=== PATIENT | female | born 2000 | race Caucasian/White ===

== ENCOUNTER 2019-08-20 11:00 | Emergency (ER) | payer SELFPAY ==
[~2019-08-20] VITALS: Ht 162.5 cm; Wt 77.2 kg
--- NOTE | 2019-08-20 11:20 | ED Abdominal Pain ---
General Chief Complaint: CLEAT LAYER Stated Complaint: ABD PAIN Source of Information: Patient Exam Limitations: No Limitations History of Present Illness Date Seen by Provider: Aug 20, 2019 Time Seen by Provider: 11:12 Initial Comments 19-year-old female presents with right lower abdominal/pelvic pain. Patient reports that the pain has been on and off for a couple weeks. That she is approximately 11 weeks . However today it got significantly worse and that she "doubled over" she reports that she had a little bit of spotting but no bleeding. She denies any fever, chills, nausea or vomiting. She does not have any dysuria. No other systemic complaints Allergies and Home Medications Patient Home Medication List Home Medication List Reviewed: Yes Review of Systems Review of Systems Constitutional: No chills, No fever EENTM: No Symptoms Reported Respiratory: No Symptoms Reported Cardiovascular: No Symptoms Reported Gastrointestinal: See HPI Genitourinary: See HPI Musculoskeletal: no symptoms reported Skin: no symptoms reported Psychiatric/Neurological: No Symptoms Reported Past Koxxsyi-Ztxndr-Nzpwrr Hx Past Med/Social Hx: Reviewed Nursing Past Med/Soc Hx Patient Social History Recent Foreign Travel: No Physical Exam Vital Signs Vital Signs - First Documented 08/20/19 11:10 Temp 36.4 Pulse 92 Resp 18 B/P (MAP) 133/74 (93) Pulse Ox 100 O2 Delivery Room Air Capillary Refill : Height/Weight/BMI Height: '" Weight: lbs. oz. kg; BMI Method: General Appearance: WD/WN, no apparent distress Respiratory: chest non-tender, lungs clear, normal breath sounds Cardiovascular: normal peripheral pulses, regular rate, rhythm Gastrointestinal: non tender, soft; No distended, No guarding, No rebound Extremities: normal range of motion, non-tender Back: no CVA tenderness Progress/Results/Core Measures Results/Orders Lab Results Laboratory Tests Test 08/20/19 11:15 08/20/19 11:30 Range/Units Urine Color YELLOW Urine Clarity CLEAR Urine pH 7.5 5-9 Urine Specific [place] 1.010 L 1.016-1.022 Urine Protein NEGATIVE NEGATIVE Urine Glucose (UA) NEGATIVE NEGATIVE Urine Ketones NEGATIVE NEGATIVE Urine Nitrite NEGATIVE NEGATIVE Urine Bilirubin NEGATIVE NEGATIVE Urine Urobilinogen 0.2 < = 1.0 MG/DL Urine Leukocyte Esterase NEGATIVE NEGATIVE Urine RBC (Auto) NEGATIVE NEGATIVE Urine RBC NONE /HPF Urine WBC 0-2 /HPF Urine Squamous Epithelial Cells 0-2 /HPF Urine Crystals NONE /LPF Urine Bacteria TRACE /HPF Urine Casts NONE /LPF Urine Mucus NONE /LPF Urine Culture Indicated NO White Blood Count 6.0 4.3-11.0 10^3/uL Red Blood Count 5.00 4.35-5.85 10^6/uL Hemoglobin 14.2 11.5-16.0 G/DL Hematocrit 41 35-52 % Mean Corpuscular Volume 82 80-99 FL Mean Corpuscular Hemoglobin 28 25-34 PG Mean Corpuscular Hemoglobin Concent 35 32-36 G/DL Red Cell Distribution Width 12.5 10.0-14.5 % Platelet Count 355 130-400 10^3/uL Mean Platelet Volume 8.8 7.4-10.4 FL Neutrophils (%) (Auto) 70 42-75 % Lymphocytes (%) (Auto) 23 12-44 % Monocytes (%) (Auto) 6 0-12 % Eosinophils (%) (Auto) 0 0-10 % Basophils (%) (Auto) 0 0-10 % Neutrophils # (Auto) 4.2 1.8-7.8 X 10^3 Lymphocytes # (Auto) 1.4 1.0-4.0 X 10^3 Monocytes # (Auto) 0.4 0.0-1.0 X 10^3 Eosinophils # (Auto) 0.0 0.0-0.3 10^3/uL Basophils # (Auto) 0.0 0.0-0.1 10^3/uL Sodium Level 137 135-145 MMOL/L Potassium Level 3.5 L 3.6-5.0 MMOL/L Chloride Level 104 98-107 MMOL/L Carbon Dioxide Level 20 L 21-32 MMOL/L Anion Gap 13 5-14 MMOL/L Blood Urea Nitrogen 5 L 7-18 MG/DL Creatinine 0.43 L 0.60-1.30 MG/DL Estimat Glomerular Filtration Rate > 60 BUN/Creatinine Ratio 12 Glucose Level 84 70-105 MG/DL Calcium Level 9.6 8.5-10.1 MG/DL Corrected Calcium 8.5-10.1 MG/DL Total Bilirubin 0.3 0.1-1.0 MG/DL Aspartate Amino Transf (AST/SGOT) 9 5-34 U/L Alanine Aminotransferase (ALT/SGPT) 11 0-55 U/L Alkaline Phosphatase 71 40-136 U/L Total Protein 8.1 6.4-8.2 GM/DL Albumin 4.6 H 3.2-4.5 GM/DL My Orders Orders - MARTIN COATS DO Cbc With Automated Diff (08/20/19 11:14) Comprehensive Metabolic Panel (08/20/19 11:14) Hcg,Quantitative (08/20/19 11:14) Ua Culture If Indicated (08/20/19 11:14) Abo Rh Type (08/20/19 11:14) Us Appendix [id number] (08/20/19 11:14) Us Ob Single Fetus<14 [id number] (08/20/19 11:14) Vital Signs/I&O 08/20/19 11:10 Temp 36.4 Pulse 92 Resp 18 B/P (MAP) 133/74 (93) Pulse Ox 100 O2 Delivery Room Air Progress Progress Note : Progress Note Patient with no physical signs of abdominal pain or discomfort. Patient with ultrasound shows live intrauterine with normal ovaries no obvious inflammation in the area of the appendix. Normal labs. Discussed the patient is likely normal cramping. That she should follow-up with her primary care provider or OB is symptoms worsen or continue. She should return to the ER as needed. Departure Impression Primary Impression: Abdominal pain affecting Disposition: 01 HOME, SELF-CARE Condition: Stable Departure-Patient Inst. Referrals: NO,LOCAL PHYSICIAN (PCP/Family) Primary Care Physician Patient Instructions: Stomach Pain in Early MARTIN COATS DO Aug 20, 2019 11:20 POS
--- NOTE | 2019-08-20 11:30 | NUR ---
Notified xray to contact waste transportation technician for ordered ultrasound.
[2019-08-20 11:31] LABS: CLARITY,URINE CLEAR; COLOR,URINE YELLOW; PH,URINE 7.5 (5-9)
[2019-08-20 11:32] LABS: BACTERIA,URINE TRACE /HPF; BILIRUBIN,URINE NEGATIVE (NEGATIVE); GLUCOSE, URINE (UA) NEGATIVE (NEGATIVE); KETONES,URINE NEGATIVE (NEGATIVE); LEUKOCYTE ESTERASE ,URINE NEGATIVE (NEGATIVE); NITRITE,URINE NEGATIVE (NEGATIVE); PROTEIN,URINE NEGATIVE (NEGATIVE); SQUAMOUS EPITHELIAL CELL,UR 0-2 /HPF; WBC,URINE 0-2 /HPF
[2019-08-20 11:44] LABS: HEMOGLOBIN 14.2 G/DL (11.5-16.0); MEAN CORPUSCULAR HEMOGLOBIN 28 PG (25-34)
[2019-08-20 11:45] LABS: BASOPHILS % (AUTO) 0 % (0-10); EOSINOPHILS % (AUTO) 0 % (0-10); HEMATOCRIT 41 % (35-52); LYMPHOCYTES # (AUTO) 1.4 X 10^3 (1.0-4.0); LYMPHOCYTES % (AUTO) 23 % (12-44); MEAN CORPUSCULAR HGB CONC 35 G/DL (32-36); MEAN CORPUSCULAR VOLUME 82 FL (80-99); MEAN PLATELET VOLUME 8.8 FL (7.4-10.4); MONOCYTES # (AUTO) 0.4 X 10^3 (0.0-1.0); MONOCYTES % (AUTO) 6 % (0-12); NEUTROPHILS # (AUTO) 4.2 X 10^3 (1.8-7.8); NEUTROPHILS % (AUTO) 70 % (42-75); PLATELET COUNT 355 10^3/uL (130-400); RED CELL DISTRIBUTION WIDTH 12.5 % (10.0-14.5)
--- NOTE | 2019-08-20 12:20 | NUR ---
Consumer Loan Officer present to begin study.
[2019-08-20 12:24] LABS: CHLORIDE 104 MMOL/L (98-107); POTASSIUM 3.5 MMOL/L (3.6-5.0); SODIUM 137 MMOL/L (135-145)
[2019-08-20 12:25] LABS: ALANINE AMINOTRANSFERASE 11 U/L (0-55); ALBUMIN 4.6 GM/DL (3.2-4.5); ALKALINE PHOSPHATASE 71 U/L (40-136); BILIRUBIN,TOTAL 0.3 MG/DL (0.1-1.0); BUN/CREATININE RATIO 12; CALCIUM 9.6 MG/DL (8.5-10.1); CARBON DIOXIDE 20 MMOL/L (21-32); CREATININE SERUM 0.43 MG/DL (0.60-1.30); GFR ESTIMATED > 60; GLUCOSE 84 MG/DL (70-105); TOTAL PROTEIN 8.1 GM/DL (6.4-8.2)
--- NOTE | 2019-08-20 12:38 | Diagnostic Imaging Report ---
PROCEDURE: US OB SINGLE FETUS <14 WKS. TECHNIQUE: Multiple real-time grayscale images were obtained over the gravid uterus in various projections. INDICATION: Abdominal pain There is a single living intrauterine . Embryo crown-rump length is 4.3 cm corresponding to a gestational age of 11 weeks and 2 days. A heartbeat was detected at 161 bpm. The placenta is posterior and low. Amniotic fluid volume is normal. There are no gross anomaly seen. Adnexa are unremarkable. IMPRESSION: Single living intrauterine with estimated gestational age of 11 weeks and 2 days +/- 1 week. Estimated date of delivery is 03/08/2020 Dictated by: Dictated on workstation # [id number]
--- NOTE | 2019-08-20 12:39 | Diagnostic Imaging Report ---
Indication: Abdominal pain Review of static images of real-time scanning with graded compression was performed The appendix is not recognized. There are no pathologic masses or fluid collections seen in the right adnexa. IMPRESSION: No acute abnormality seen in the right lower quadrant. The appendix cannot be located sonographically. Dictated by: Dictated on workstation # [id number]
[2019-08-20 12:50] VITALS: BP 131/66
== END 2019-08-20 12:53 | disposition home or self-care (01) ==
LOC: ER FS 11:02
DX: O26.891 Other specified pregnancy related conditions, first trimester (principal); R10.31 Right lower quadrant pain; Z3A.11 11 weeks gestation of pregnancy
CPT/HCPCS: 36415; 75705; 76801; 80053; 81000; 84702; 84703; 85025; 86900; 86901

== ENCOUNTER 2021-09-26 12:36 | Emergency (ER) | payer MEDICAID, OTHER ==
[~2021-09-26] VITALS: Ht 162 cm; Wt 63.0 kg
--- OUTSIDE RECORDS SUMMARY | 2021-09-26 12:40 | XMS REPORT | Summary of Care ---
Author Author [facility] Address Unknown Phone Unavailable Care Team Providers Care Mill Laborer Name Role Phone MATI RAO, DR. Bernabe PEGUERO PCP Encounter BREANNA PACHECO [place] [id number] Date(s): 05/12/21 - 05/12/21 [facility] [address], [place] [address] Encounter Diagnosis COVID-19 virus infection (Discharge Diagnosis) - 05/12/21 Discharge Disposition: Home - 01 Attending Physician: KYLE WARD MD Admitting Physician: KYLE WARD MD Vital Signs Most recent to 1 oldest [Reference Range]: Temperature 97.9 DegF [96.8-99.7 DegF] (05/12/21 6:51 PM) Temp Method Oral (05/12/21 6:51 PM) Heart Rate 116 bpm (05/12/21 9:30 PM) Respiratory Rate 18 br/min [15-20 br/min] (05/12/21 9:30 PM) Blood Pressure 129/88 mmHg [90-180/50-90 mmHg] (05/12/21 9:30 PM) Problem List Condition Effective Dates Status Health Status Informan t Tylenol Active overdose(Confirmed) Bipolar disorder Active current episode depressed(Confirmed) (Confirmed) 06/10/19 - 03/08/20 Resolved 1, 2 (Confirmed) Active Suicide Active attempt(Confirmed) 1Updated by Discern Expert 2Added by Discern Expert Allergies, Adverse Reactions, Alerts No Known Allergies Medications No data available for this section Results Most recent to 1 oldest [Reference Range]: Influenza A RNA [Not Not Detected Detected] (05/12/21 7:44 PM) Influenza B RNA [Not Not Detected Detected] (05/12/21 7:44 PM) SARS COV2 COVID19 Detected 1 PCR [Not Detected] *CRIT* (05/12/21 7:44 PM) Employed in No Healthcare? *NA* (05/12/21 7:44 PM) Symptomatic for Yes COVID19? *NA* (05/12/21 7:44 PM) Hospitalized? No *NA* (05/12/21 7:44 PM) First COVID19 Test? No *NA* (05/12/21 7:44 PM) Date of Onset 05/10/2021 COVID19 Symptoms *NA* (05/12/21 7:44 PM) ? Unknown *NA* (05/12/21 7:44 PM) ICU Patient? No *NA* (05/12/21 7:44 PM) Congregate Care No Resident? *NA* (05/12/21 7:44 PM) 1Result Comment: Results called to Margoth Queen RN by SAMI at 05/12/2021 20:32. Results were read back. Immunizations No data available for this section Procedures No data available for this section Social History No data available for this section Functional Status No data available for this section Assessment and Plan No data available for this section Hospital Discharge Instructions No data available for this section
--- OUTSIDE RECORDS SUMMARY | 2021-09-26 12:40 | XMS REPORT | Summary of Care ---
Author Author [facility] Address Unknown Phone Unavailable Encounter BREANNA Ryan [id number] Date(s): 04/20/21 - 04/20/21 [facility] [address] [place], [place] [address] Encounter Diagnosis Vaginal bleeding (Discharge Diagnosis) - 04/20/21 Chlamydia (Discharge Diagnosis) - 04/20/21 Discharge Disposition: Home - 01 Attending Physician: GOLDIE JIMENEZ MD Admitting Physician: GOLDIE JIMENEZ MD Vital Signs Most recent to 1 oldest [Reference Range]: Temperature 97.2 DegF [96.8-99.7 DegF] (04/20/21 1:49 PM) Temp Method Oral (04/20/21 1:49 PM) Heart Rate 95 bpm (04/20/21 4:46 PM) Respiratory Rate 18 br/min [15-20 br/min] (04/20/21 4:46 PM) Blood Pressure 140/80 mmHg [90-180/50-90 mmHg] (04/20/21 4:46 PM) NIBP MAP Calc [65 100 mmHg mmHg] (04/20/21 4:46 PM) Problem List Condition Effective Dates Status Health Status Blas lopez Tylenol Active overdose(Confirmed) Bipolar disorder Active current episode depressed(Confirmed) (Confirmed) 06/10/19 - 03/08/20 Resolved 1, 2 (Confirmed) Active Suicide Active attempt(Confirmed) 1Updated by Discern Expert 2Added by Discern Expert Allergies, Adverse Reactions, Alerts No Known Allergies Medications doxycycline hyclate 100 mg oral tablet 1 TAB, PO, BID (2 times a day), X 10 day, # 20 TAB, 0 Refill(s), Indication: Kenia terial Infection, Pharmacy: [id number], 304, 04/20/21 13:49:00 CDT, Clinical Height, cm, 61, 04/20/21 13:49:00 CDT, Clinical Weight, kg Start Date: 04/20/21 Stop Date: 04/30/21 Status: Ordered Results Most recent to 1 oldest [Reference Range]: Est CrCL (CG) 103.1 mL/min 1 *NA* (04/20/21 2:27 PM) NRBC Auto 0 % *NA* (04/20/21 2:27 PM) Microscopic? Yes (04/20/21 2:27 PM) Culture? No (04/20/21 2:27 PM) Glucose [65-110 89 mg/dL mg/dL] (04/20/21 2:27 PM) Neutrophils Abs 4.5 x10'3/microL [1.4-7.2 (04/20/21 2:27 PM) x10'3/microL] Lymphocytes Abs 2.49 x10'3/microL [1.20-3.40 (04/20/21 2:27 PM) x10'3/microL] Monocytes Abs 0.5 x10'3/microL [0.1-0.6 (04/20/21 2:27 PM) x10'3/microL] Eosinophils Abs 0.1 x10'3/microL [0.0-0.5 (04/20/21 2:27 PM) x10'3/microL] Basophils Abs 0.0 x10'3/microL [0.0-0.2 (04/20/21 2:27 PM) x10'3/microL] GFR (CKD-EPI) 105.7 mL/min/1.73 m2 2 *NA* (04/20/21 2:27 PM) UA Spec Type Clean Catch (04/20/21 2:27 PM) U Preg Test Negative (04/20/21 2:27 PM) Abs NRBCs 0 x10'3/microL *NA* (04/20/21 2:27 PM) Immature 0.1 Granulocytes % *NA* (04/20/21 2:27 PM) Immature Grans Abs 0 *NA* (04/20/21 2:27 PM) Bun/Creat [7.0-25.0] 15.0 (04/20/21 2:27 PM) Globulin 3 *NA* (04/20/21 PM) AGAP 11 *NA* (04/20/21 PM) Albumin Level 4.8 g/dL [3.5-5.0 g/dL] (04/20/21 PM) Alk Phos [20-155 81 Units/L Units/L] (04/20/21 PM) ALT(SGPT) [0-35 15 Units/L Units/L] (04/20/21 PM) AST [8-39 Units/L] 16 Units/L (04/20/21 PM) Basophils % [0.0-2.0 0.4 % %] (04/20/21 PM) Bili Total 0.60 mg/dL [0.20-1.20 mg/dL] (04/20/21 PM) BUN [7-21 mg/dL] 12 mg/dL (04/20/21 PM) Calcium [8.4-10.2 10.1 mg/dL mg/dL] (04/20/21 PM) Chloride [98-107 106 mmol/L mmol/L] (04/20/21 PM) CO2 [22-30 mmol/L] 24 mmol/L (04/20/21 PM) Creatinine [0.7-1.5 0.8 mg/dL mg/dL] (04/20/21 PM) Eosinophils % 0.8 % [0.0-3.0 %] (04/20/21 PM) Hct [37.0-47.0 %] 43.7 % (04/20/21 PM) Hgb [12.0-15.0 g/dL] 15.2 g/dL *HI* (04/20/21 PM) Lymphocytes % 32.8 % [18.0-40.0 %] (04/20/21 PM) MCH [26.0-35.0 pg] 29.3 pg (04/20/21 PM) MCHC [28.0-37.3 %] 34.8 % (04/20/21 PM) MCV [80-100 fL] 84 fL (04/20/21 2:27 PM) Monocytes % [1.0-8.0 6.3 % %] (04/20/21: PM) Neutrophils % 59.6 % [20.0-75.0 %] (04/20/21: PM) Platelet [150-400 362 x10'3/microL x10'3/microL] (04/20/21: PM) Potassium [3.6-5.0 3.9 mmol/L mmol/L] (04/20/21: PM) RBC [4.20-5.00 5.18 x10'6/microL x10'6/microL] *HI* (04/20/21 PM) RDW [10.5-14.5 %] 12.1 % (04/20/21: PM) Sodium [137-145 141 mmol/L mmol/L] (04/20/21: PM) Total Protein 8.2 g/dL [6.3-8.2 g/dL] (04/20/21: PM) UA Appear [Clear] Clear (04/20/21: PM) UA Bacteria [Not Few Seen] (04/20/21: PM) UA Bili [Negative] Negative (04/20/21: PM) UA Blood [Negative] Trace-intact *ABN* (04/20/21: PM) UA Color [Yellow] Yellow (04/20/21: PM) UA Glucose Negative [Negative] (04/20/21: PM) UA Ketones Negative [Negative] (04/20/21: PM) UA Leuk Est Negative [Negative] (04/20/21 2: PM) UA Mucous [Negative] Light (04/20/21: PM) UA Nitrite Negative [Negative] (04/20/21: PM) UA pH [5.0-8.0] 6.0 (04/20/21 2: PM) UA Protein 3+ [Negative] *ABN* (04/20/21 2: PM) UA RBC [None Seen] 0-5 (04/20/21:27 PM) UA Spec Grav >=1.030 [1.005-1.015] *NA* (04/20/21 2:27 PM) UA Squamous 3-10 Epithelial [None (04/20/21 2:27 PM) Seen] UA Urobilinogen 1.0 [0.2] (04/20/21 2:27 PM) UA WBC [None Seen] 0-5 (04/20/21 2:27 PM) WBC [4.0-10.0 7.6 x10'3/microL x10'3/microL] (04/20/21 2:27 PM) Albumin/Globulin 2 Ratio *NA* (04/20/21 2:27 PM) 1Result Comment: Estimated Creatinine Clearance calculated based on Cockcroft-Gault formula using: Height 167 Weight 61 Estimated Creatinine Clearance Cockcroft Gault is utilized by the Pharmacy to as sist in determining medication dosage based on kidney function. Multiple factors determine normal ranges, please contact the Pharmacy with questions. 2Result Comment: GFR calculated based on CKD-EPI Creatinine Equation (2009). Age(years) Average GFR 20-29 116 mL/min/1.73 m^2 30-39 107 mL/min/1.73 m^2 40-49 99 mL/min/1.73 m^2 50-59 93 mL/min/1.73 m^2 60-69 85 mL/min/1.73 m^2 70+ 75 mL/min/1.73 m^2 Acceptable GFR =>60 mL/min/1.73 m^2 Chronic Kidney Disease <60 mL/min/1.73 m^2 Kidney Failure <15 mL/min/1.73 m^2 Immunizations No data available for this section Procedures No data available for this section Social History No data available for this section Functional Status No data available for this section Assessment and Plan No data available for this section Hospital Discharge Instructions No data available for this section
--- OUTSIDE RECORDS SUMMARY | 2021-09-26 12:40 | XMS REPORT | Summary of Care ---
Author Author [facility] Address Unknown Phone Unavailable Encounter [facility] JUNIOR Ryan [id number] Date(s): 03/08/20 - 03/10/20 [facility] [address] [address] Encounter Diagnosis Gestational hypertension (Discharge Diagnosis) - 03/08/20 (spontaneous vaginal delivery) (Discharge Diagnosis) - 03/10/20 Discharge Disposition: Home - 01 Attending Physician: GOOD VAUGHN MD Admitting Physician: GOOD VAUGHN MD Vital Signs Most recent to 1 oldest [Reference Range]: Vital Signs Routine Assessment Status/Type (03/10/20 2:00 PM) Temperature 97.8 DegF [96.8-99.7 DegF] (03/10/20 2:00 PM) Temp Method Oral (03/10/20 2:00 PM) Heart Rate 98 bpm (03/10/20 2:00 PM) Heart Rate Location Auto BP, Brachial (03/10/20 2:00 PM) Respiratory Rate 20 br/min [15-20 br/min] (03/10/20 2:00 PM) Blood Pressure 150/87 mmHg [90-180/50-90 mmHg] (03/10/20 2:00 PM) NIBP MAP Calc [65 104 mmHg mmHg] (03/10/20 2:00 AM) BP Location Arm, right (03/10/20 2:00 PM) BP Cuff Size Medium (03/10/20 2:00 PM) Problem List Condition Effective Dates Status Health Status Informan t Tylenol Active overdose(Confirmed) Bipolar disorder Active current episode depressed(Confirmed) Active (mother)(Confirmed)1 (Confirmed) Active Suicide Active attempt(Confirmed) 1Added by Discern Expert Allergies, Adverse Reactions, Alerts No Known Allergies Medications ibuprofen 600 mg oral tablet 1 TAB, PO, Q6H (Every 6 hours), # 30 TAB, 0 Refill(s), Indication: Mild Pain Start Date: 03/10/20 Stop Date: 03/18/20 Status: Ordered Xanax 0.25 mg oral tablet 1 TAB, PO, TID (3 times a day), PRN as needed for anxiety, # 30 TAB, 0 Refill(s) , Indication: Anxiety Start Date: 03/10/20 Stop Date: 03/25/20 Status: Ordered ZyPREXA 5 mg oral tablet = 1 TAB, PO, Daily, # 30 TAB, 3 Refill(s), Indication: Depression Start Date: 03/10/20 Status: Ordered Results Most recent to 1 2 oldest [Reference Range]: Est CrCL (CG) 228.4 mL/min 1 *NA* (03/08/20 4:49 AM) U Methadone Negative [Negative] (03/08/20 5:30 AM) FetSC? No (03/08/20 5:30 AM) RhIG? No (03/08/20 5:30 AM) ABORh O POS *Unknown* (03/08/20 5:30 AM) ABSC Gel Interp Negative (03/08/20 5:30 AM) GFR (CKD-EPI) >110.0 mL/min/1.73 m2 2 [>=60.0 mL/min/1.73 (03/08/20 4:49 AM) m2] U PCP Screen Negative [Negative] (03/08/20 5:30 AM) U Sp Grav 1.020 [1.010-1.030] (03/08/20 5:30 AM) UR Protein/Creat 0.17 Ratio *NA* (03/08/20 5:30 AM) Ur Oxycodone Negative [Negative] (03/08/20 5:30 AM) SARS COV2 PCR Nasopharyngeal Specimen (03/08/20 4:50 AM) SARS COV2 COVID19 Not Detected 3 PCR (03/08/20 4:50 AM) ALT(SGPT) [0-33 8 Inter. Units/L Inter. Units/L] (03/08/20 4:49 AM) AST [0-40 Units/L] 11 Units/L (03/08/20 4:49 AM) BUN [8-20 mg/dL] 8 mg/dL (03/08/20 4:49 AM) Creatinine [0.7-1.2 0.4 mg/dL mg/dL] *LOW* (03/08/20 4:49 AM) Hct [35-47 %] 33 % *LOW* (03/09/20 8:01 AM) Hgb [12.0-16.0 g/dL] 10.5 g/dL *LOW* (03/09/20 8:01 AM) MCH [27-34 pg] 27 pg (03/09/20 8:01 AM) MCHC [30-36 g/dL] 32 g/dL (03/09/20 8:01 AM) MCV [81-99 fL] 85 fL (03/09/20 8:01 AM) MPV [8.3-12.4 fL] 10.6 fL (03/09/20 8:01 AM) Platelet [140-400 252 x10'3/microL x10'3/microL] (03/09/20 8:01 AM) RBC [3.90-5.60 3.91 x10'6/microL x10'6/microL] (03/09/20 8:01 AM) RDW [<=16.4 %] 13.9 % (03/09/20 8:01 AM) Ur Amph Scrn Negative [Negative] (03/08/20 5:30 AM) Ur Giselle Scrn Negative [Negative] (03/08/20 5:30 AM) Ur Benzodia Scrn Negative [Negative] (03/08/20 5:30 AM) U Cannab Scrn Positive [Negative] *ABN* (03/08/20 5:30 AM) Ur Cocaine Scrn Negative [Negative] (03/08/20 5:30 AM) U Opiate Scrn Negative [Negative] (03/08/20 5:30 AM) Ur Creat [28.0-217.0 108.1 mg/dL 106.0 mg/dL mg/dL] (03/08/20 5:30 AM) (03/08/20 5:30 AM) Ur Protein [0-10 18 mg/dL mg/dL] *HI* (03/08/20 5:30 AM) Uric Acid [2.4-5.7 3.7 mg/dL mg/dL] (03/08/20 4:49 AM) WBC [4.0-11.0 12.0 x10'3/microL x10'3/microL] *HI* (03/09/20 8:01 AM) ABORh RR Interp O POS *Unknown* (03/08/20 8:41 AM) 1Result Comment: Estimated Creatinine Clearance calculated based on Cockcroft-Gault formula using: Height 163 Weight 98.7 Estimated Creatinine Clearance Cockcroft Gault is utilized [...] mL/min/1.73 m^2 Kidney Failure <15 mL/min/1.73 m^2 3Result Comment: Test Performed by: [facility] [address] [place] [address], [address] [place] [address] CLIA #[id number]. Immunizations No data available for this section Procedures No data available for this section Social History No data available for this section Functional Status No data available for this section Assessment and Plan No data available for this section Hospital Discharge Instructions No data available for this section
--- OUTSIDE RECORDS SUMMARY | 2021-09-26 12:41 | XMS REPORT | Summary of Care ---
Author Author [employer] Organization [employer] Address Unknown Phone Unavailable Encounter [facility] Ryan [id number] Date(s): 09/05/19 - 09/10/19 [facility] [address] [id number] Encounter Diagnosis Bipolar disorder current episode depressed (Discharge Diagnosis) - 09/05/19 Tylenol overdose (Discharge Diagnosis) - 09/05/19 Suicide attempt (Discharge Diagnosis) - 09/05/19 (Discharge Diagnosis) - 09/05/19 Discharge Disposition: Home - 01 Attending Physician: VIN BELLE MD Admitting Physician: PHOEBE FITZPATRICK MD Vital Signs Most recent to 1 oldest [Reference Range]: Vital Signs Routine Assessment Status/Type (09/09/19 8:30 PM) Temperature 97.6 DegF [96.8-99.7 DegF] (09/10/19 5:44 AM) Temp Method Oral (09/10/19 5:44 AM) Heart Rate 80 bpm (09/10/19 5:44 AM) Pulse Equipment SPO2 (09/10/19 5:44 AM) Respiratory Rate 16 br/min [15-20 br/min] (09/10/19 5:44 AM) Blood Pressure 109/58 mmHg [90-180/50-90 mmHg] (09/10/19 5:43 AM) NIBP MAP [65 mmHg] 69 mmHg (09/10/19 5:43 AM) NIBP MAP Calc [65 88 mmHg mmHg] (09/07/19 11:00 AM) BP Location Arm, left (09/10/19 5:44 AM) NIBP Method Automatic (09/07/19 11:00 AM) BP Cuff Size Medium (09/07/19 11:00 AM) Problem List Condition Effective Dates Status Health Status Informan t Tylenol Active overdose(Confirmed) Bipolar disorder Active current episode depressed(Confirmed) (Confirmed) Active 1 (Confirmed) Active Suicide Active attempt(Confirmed) 1Added by Discern Expert Allergies, Adverse Reactions, Alerts No Known Allergies Medications OLANZapine 10 mg oral tablet = 1 TAB, PO, QHS (At bedtime), # 30 TAB, 0 Refill(s), Indication: Hallucinations Start Date: 09/10/19 Status: Ordered Results Most recent to 1 oldest [Reference Range]: HCG,Serum,Qual 22545.0 Melisa. Units/mL [<=5.0 Melisa. *HI* Units/mL] (09/05/19 7:27 PM) Est CrCL (CG) 238.4 mL/min 1 *NA* (09/05/19 7:27 PM) U Methadone Negative [Negative] (09/05/19 8:51 PM) Microscopic? No (09/05/19 8:51 PM) Culture? No (09/05/19 8:51 PM) Glucose [70-100 91 mg/dL mg/dL] (09/05/19 7:27 PM) Neutrophils Abs 7.0 x10'3/microL [1.4-7.2 (09/05/19 7:27 PM) x10'3/microL] Lymphocytes Abs 2.6 x10'3/microL [1.2-3.4 (09/05/19 7:27 PM) x10'3/microL] Monocytes Abs 0.5 x10'3/microL [0.1-0.6 (09/05/19 7:27 PM) x10'3/microL] Eosinophils Abs 0.0 x10'3/microL [0.0-0.5 (09/05/19 7:27 PM) x10'3/microL] Basophils Abs 0.0 x10'3/microL [0.0-0.2 (09/05/19 7:27 PM) x10'3/microL] GFR (CKD-EPI) >110.0 mL/min/1.73 m2 2 [>=60.0 mL/min/1.73 (09/05/19 7:27 PM) m2] U PCP Screen Negative [Negative] (09/05/19 8:51 PM) U Sp Grav >=1.030 [1.010-1.030] (09/05/19 8:51 PM) UA Spec Type Clean Catch *NA* (09/05/19 8:51 PM) Immature 0 % Granulocytes % [0-0 (09/05/19 7:27 PM) %] Immature Grans Abs 0.0 x10'3/microL [0.0-0.0 (09/05/19 7:27 PM) x10'3/microL] Ur Oxycodone Negative [Negative] (09/05/19 8:51 PM) AGAP [3-12 mmol/L] 16 mmol/L *HI* (09/05/19 7:27 PM) Albumin Level 4.5 g/dL [3.5-5.2 g/dL] (09/05/19 7:27 PM) Alk Phos [40-130 62 Inter. Units/L Inter. Units/L] (09/05/19 7:27 PM) ALT(SGPT) [0-33 8 Inter. Units/L Inter. Units/L] (09/05/19 7:27 PM) AST [0-40 Units/L] 7 Units/L (09/05/19 7:27 PM) Basophils % [0-3 %] 0 % (09/05/19 7:27 PM) Bili Total [0.0-1.2 0.3 mg/dL mg/dL] (09/05/19 7:27 PM) BUN [8-20 mg/dL] 6 mg/dL *LOW* (09/05/19 7:27 PM) Calcium [8.6-10.2 9.5 mg/dL mg/dL] (09/05/19 7:27 PM) Chloride [98-107 104 mmol/L mmol/L] (09/05/19 7:27 PM) Cholesterol [<=200 130 mg/dL mg/dL] (09/08/19 6:58 AM) CO2 [22-29 mmol/L] 18 mmol/L *LOW* (09/05/19 7:27 PM) Creatinine [0.7-1.2 0.4 mg/dL mg/dL] *LOW* (09/05/19 7:27 PM) Eosinophils % [0-7 0 % %] (09/05/19 7:27 PM) Hct [35-47 %] 39 % (09/05/19 7: PM) HDL [>=60 mg/dL] 40 mg/dL *LOW* (09/08/19 6:58 AM) Hgb [12.0-16.0 g/dL] 13.1 g/dL (09/05/19 7:27 PM) Hgb A1c [0.0-5.6 %] 4.7 % (09/08/19 6:57 AM) INR 1.0 *NA* (09/05/19:27 PM) Lymphocytes % [13-43 25 % %] (09/05/19: PM) MCH [27-34 pg] 28 pg (09/05/19: PM) MCHC [30-36 g/dL] 34 g/dL (09/05/19: PM) MCV [81-99 fL] 84 fL (09/05/19: PM) Monocytes % [0-13 %] 5 % (09/05/19: PM) MPV [6.5-10.4 fL] 9.6 fL (09/05/19:27 PM) Neutrophils % [44-76 69 % %] (09/05/19: PM) Platelet [140-400 301 x10'3/microL x10'3/microL] (09/05/19:27 PM) Potassium [3.5-5.1 3.9 mmol/L mmol/L] (09/05/19: PM) PT [11.5-15.0 12.7 second second] (09/05/19: PM) PTT [20-34 second] 36 second *HI* (09/05/19: PM) RBC [3.90-5.60 4.59 x10'6/microL x10'6/microL] (09/05/19 PM) RDW [<=16.4 %] 12.5 % (09/05/19: PM) Sodium [136-145 138 mmol/L mmol/L] (09/05/19 PM) Total Protein 7.6 g/dL [6.6-8.7 g/dL] (12/11/19 7:27 PM) Triglycerides [<=150 87 mg/dL mg/dL] (09/08/19 6:58 AM) Ur Amph Scrn Negative [Negative] (09/05/19 8:51 PM) Ur Giselle Scrn Negative [Negative] (09/05/19 8:51 PM) Ur Benzodia Scrn Negative [Negative] (09/05/19 8:51 PM) UA Bili [Negative] Negative (09/05/19 8:51 PM) UA Blood [Negative] Negative (09/05/19 8:51 PM) U Cannab Scrn Positive [Negative] *ABN* (09/05/19 8:51 PM) Ur Cocaine Scrn Negative [Negative] (09/05/19 8:51 PM) UA Color Yellow (09/05/19 8:51 PM) UA Glucose [Negative Negative mg/dL mg/dL] (09/05/19 8:51 PM) UA Ketones [Negative Negative mg/dL mg/dL] (09/05/19 8:51 PM) UA Leuk Est Negative [Negative] (09/05/19 8:51 PM) UA Nitrite Negative [Negative] (09/05/19 8:51 PM) U Opiate Scrn Negative [Negative] (09/05/19 8:51 PM) UA pH [5.0-8.0] 5.5 (09/05/19 8:51 PM) UA Protein [Negative Negative mg/dL mg/dL] (09/05/19 8:51 PM) UA Spec Grav >=1.030 [1.001-1.030] (09/05/19 8:51 PM) UA Urobilinogen 0.2 EU per dL [0.2-1.0 EU per dL] (09/05/19 8:51 PM) Ur Creat [28.0-217.0 114.4 mg/dL mg/dL] (09/05/19 8:51 PM) WBC [4.0-11.0 10.2 x10'3/microL x10'3/microL] (09/05/19 7:27 PM) LDL Direct [<=100 87 mg/dL mg/dL] (09/08/19 6:58 AM) Chol/HDL Ratio 3.2 [<=4.5] (09/08/19 6:58 AM) Estimated Average 88 mg/dL Glucose *NA* (09/08/19 6:57 AM) 1Result Comment: Estimated Creatinine Clearance calculated based on Cockcroft-Gault formula using: Height 163 Weight 73 Estimated Creatinine Clearance Cockcroft Gault is utilized [...] data available for this section Social History Social History Type Response Functional Status No data available for this section Assessment and Plan No data available for this section Hospital Discharge Instructions No data available for this section
--- OUTSIDE RECORDS SUMMARY | 2021-09-26 12:41 | XMS REPORT | Summary of Care ---
Author Author [employer] Organization [employer] Address Unknown Phone Unavailable Encounter [facility] Ryan [id number] Date(s): 01/12/20 - 01/12/20 [employer] [address] [address] Discharge Disposition: Home - 01 Attending Physician: JOAQUIN REZA MD Admitting Physician: MARKY STEVENS MD Vital Signs Most recent to 1 oldest [Reference Range]: Temperature 97 DegF [96.8-99.7 DegF] (01/12/20 3:20 AM) Temp Method Temporal (01/12/20 3:20 AM) Heart Rate 85 bpm (01/12/20 6:31 AM) Blood Pressure 127/73 mmHg [90-180/50-90 mmHg] (01/12/20 6:31 AM) NIBP MAP Calc [65 91 mmHg mmHg] (01/12/20 6:31 AM) Problem List Condition Effective Dates Status Health Status Informan t Tylenol Active overdose(Confirmed) Bipolar disorder Active current episode depressed(Confirmed) (Confirmed) 06/10/19 Active 1 (Confirmed) Active Suicide Active attempt(Confirmed) 1Added by Discern Expert Allergies, Adverse Reactions, Alerts No Known Allergies Medications No Known Medications Results Most recent to 1 oldest [Reference Range]: UA UBG POC [0.2-1.0 0.2 EU per dL EU per dL] (01/12/20 3:25 AM) UA Bili POC Negative [Negative] (01/12/20 3:25 AM) U Methadone Negative [Negative] (01/12/20 3:33 AM) UA Glucose POC Negative mg/dL [Negative mg/dL] (01/12/20 3:25 AM) U PCP Screen Negative [Negative] (01/12/20 3:33 AM) U Sp Grav 1.015 [1.010-1.030] (01/12/20 3:33 AM) UA Leuk Est POC Negative [Negative] (01/12/20 3:25 AM) UA Nitrite POC Negative [Negative] (01/12/20 3:25 AM) UA Protein POC Negative mg/dL [Negative mg/dL] (01/12/20 3:25 AM) UA pH POC [5.0-8.0] 7.0 (01/12/20 3:25 AM) UA Blood POC Negative [Negative] (01/12/20 3:25 AM) UA Spec Grav POC 1.015 [1.001-1.030] (01/12/20 3:25 AM) UA Ketone POC Negative mg/dL [Negative mg/dL] (01/12/20 3:25 AM) Ur Oxycodone Negative [Negative] (01/12/20 3:33 AM) Trichomonas Source Vagina (01/12/20 4:37 AM) Trich Vaginalis Amp Not Detected Probe [Not Detected] (01/12/20 4:37 AM) Ur Amph Scrn Negative [Negative] (01/12/20 3:33 AM) Ur Giselle Scrn Negative [Negative] (01/12/20 3:33 AM) Ur Benzodia Scrn Negative [Negative] (01/12/20 3:33 AM) U Cannab Scrn Positive [Negative] *ABN* (01/12/20 3:33 AM) Ur Cocaine Scrn Negative [Negative] (01/12/20 3:33 AM) U Opiate Scrn Negative [Negative] (01/12/20 3:33 AM) Ur Creat [28.0-217.0 54.1 mg/dL mg/dL] (01/12/20 3:33 AM) Immunizations No data available for this section Procedures No data available for this section Social History Social History Type Response Functional Status No data available for this section Assessment and Plan No data available for this section Hospital Discharge Instructions No data available for this section
--- OUTSIDE RECORDS SUMMARY | 2021-09-26 12:41 | XMS REPORT | Summary of Care ---
Author Author [facility] Address Unknown Phone Unavailable Encounter BREANNA Ryan [id number] Date(s): 10/22/19 - 10/22/19 [facility] [address] [place] [address]- [phone] Encounter Diagnosis Abdominal pain in (Discharge Diagnosis) - 10/22/19 Vomiting of , unspecified (Discharge Diagnosis) - 10/22/19 Discharge Disposition: Home - Attending Physician: TORRI FONTAINE MD Admitting Physician: TORRI FONTAINE MD Vital Signs Most recent to 1 oldest [Reference Range]: Vital Signs Routine Assessment Status/Type (10/22/19 12:10 PM) Temperature 98.7 DegF [96.8-99.7 DegF] (10/22/19 12:10 PM) Temp Method Oral (10/22/19 12:10 PM) Heart Rate 93 bpm (10/22/19 12:10 PM) Blood Pressure 124/73 mmHg [90-180/50-90 mmHg] (10/22/19 12:10 PM) BP Location Arm, left (10/22/19 12:10 PM) NIBP Method Automatic (10/22/19 12:10 PM) Problem List Condition Effective Dates Status Health Status Informan t Tylenol Active overdose(Confirmed) Bipolar disorder Active current episode depressed(Confirmed) (Confirmed) 06/10/19 Active 1 (Confirmed) Active Suicide Active attempt(Confirmed) 1Added by Discern Expert Allergies, Adverse Reactions, Alerts No Known Allergies Medications Multivitamin 1 TAB, PO, Daily, 0 Refill(s) Start Date: 10/22/19 Status: Ordered Zofran ODT 4 mg oral tablet, disintegrating 1 TAB, PO, Q8H (Every 8 hours), # 12 TAB, 0 Refill(s), Indication: Nausea/Vomiti ng Start Date: 10/22/19 Status: Ordered Results Most recent to 1 oldest [Reference Range]: Microscopic? No (10/22/19 12:22 PM) Culture? No (10/22/19 12:22 PM) UA Spec Type Clean Catch (10/22/19 12:22 PM) UA Appear [Clear] Clear (10/22/19 12:22 PM) UA Bili [Negative] Negative (10/22/19 12:22 PM) UA Blood [Negative] Negative (10/22/19 12:22 PM) UA Color [Yellow] Yellow (10/22/19 12:22 PM) UA Glucose Negative [Negative] (10/22/19 12:22 PM) UA Ketones Negative [Negative] (10/22/19 12:22 PM) UA Leuk Est Negative [Negative] (10/22/19 12:22 PM) UA Nitrite Negative [Negative] (10/22/19 12:22 PM) UA pH [5.0-8.0] 7.5 (10/22/19 12:22 PM) UA Protein Negative [Negative] (10/22/19 12:22 PM) UA Spec Grav 1.025 [1.005-1.015] *NA* (10/22/19 12:22 PM) UA Urobilinogen 0.2 [0.2] (10/22/19 12:22 PM) Immunizations No data available for this section Procedures No data available for this section Social History Social History Type Response Functional Status No data available for this section Assessment and Plan No data available for this section Hospital Discharge Instructions No data available for this section
[2021-09-26] MEDS ORDERED: KETOROLAC 30 MG/ML VIAL IM STA (12:54)
[2021-09-26] MEDS ORDERED: ORPHENADRINE 60 MG/2 ML (NORFLEX) AMP (ED ONLY) IM STA (12:54)
[2021-09-26] MEDS ORDERED: CYCL10TA25 PO (13:01)
[2021-09-26] MEDS ORDERED: NAPR-1071 PO (13:01)
--- NOTE | 2021-09-26 13:01 | ED Back Pain ---
General Chief Complaint: Back Problems Stated Complaint: LT BACK PAIN History of Present Illness Date Seen by Provider: Sep 26, 2021 Time Seen by Provider: 12:56 Initial Comments 21-year-old female presents with left lower back pain. Patient "thinks my sciatica is acting up". Patient reports a history of left lower back pain for at least the last 3 to 4 years. Reports that she was doing okay but this morning started having pain in her left lower back that radiates down her left leg and through her groin. She has had similar pain and irritation in the past. She reports that normally she goes to a chiropractor but because of the today being a holiday nobody is open. Patient denies any acute injury, fevers chills nausea vomiting or other systemic complaints. Allergies and Home Medications Allergies Coded Allergies: No Known Drug Allergies (Unverified , 09/26/21) Patient Home Medication List Home Medication List Reviewed: Yes Review of Systems Constitutional: No chills, No fever EENTM: no symptoms reported Respiratory: no symptoms reported Cardiovascular: no symptoms reported Gastrointestinal: no symptoms reported Genitourinary: no symptoms reported Musculoskeletal: see HPI Skin: no symptoms reported Psychiatric/Neurological: No Symptoms Reported Past [id number]-[id number] Hx Patient Social History Tobacco Use?: Yes Tobacco type used: Cigarettes Smoking Status: Current Everyday Smoker Use of E-Cig and/or Vaping dev: No Substance use?: No Alcohol Use?: Yes Alcohol Frequency: Once in a while Pt feels they are or have been: No Seasonal Allergies Seasonal Allergies: No Past Medical History Surgeries: Yes (Left wrist fx) Orthopedic Respiratory: No Cardiac: Yes (Hx Tachycardia) Hypertension Neurological: Yes Headaches /Migraines Genitourinary: No Gastrointestinal: No Musculoskeletal: Yes Fractures Endocrine: No HEENT: No Cancer: No Psychosocial: No Integumentary: No Blood Disorders: No Physical Exam Vital Signs Capillary Refill : Height, Weight, BMI Height: '" Weight: lbs. oz. kg; 29.00 BMI Method: General Appearance: No Apparent Distress HEENT: PERRL/EOMI Neck: Non Tender, Supple Cardiovascular: Regular Rate, Rhythm Respiratory: Lungs Clear, Normal Breath Sounds Gastrointestinal: Non Tender, Soft Back: No Vertebral Tenderness; Other (Mild tenderness left lower back/buttock) Extremity: Normal Capillary Refill, Normal Inspection, Normal Range of Motion Neurologic/Psychiatric: Alert, Oriented x3, No Motor/Sensory Deficits, Normal Mood/Affect, clipper operator II-XII Norm as Tested; No Motor Weakness Skin: Normal Color, Warm/Dry Progress/Results/Core Measures Results/Orders My Orders Orders - MARTIN COATS DO Ketorolac Injection (Toradol Injection) (09/26/21 12:54) Norflex 60 Mg Im (09/26/21 12:54) Progress Progress Note : Progress Note Patient with symptoms consistent with known left lower back pain and static it. Patient received a shot of of Norflex and Toradol while in the ER and I will prescribe her some Flexeril. Patient stable and discharged Departure Impression Primary Impression: Lumbar radiculopathy Additional Impression: Left-sided low back pain with left-sided sciatica Qualified Codes: M54.42 - Lumbago with sciatica, left side; G89.29 - Other chronic pain Disposition: HOME, SELF-CARE Condition: Stable Departure-Patient Inst. Referrals: NO,LOCAL PHYSICIAN (PCP/Family) Primary Care Physician Patient Instructions: Sciatica Exercises, Low Back Pain in Adults, Radiculopathy (DC) Add. Discharge Instructions: 4% topical lidocaine with menthol to your left lower back as directed on package Voltaren/diclofenac cream to left lower back as directed on package Follow-up with your chiropractor and primary care provider as needed All discharge instructions reviewed with patient and/or family. Voiced understanding. Scripts Naproxen (Naprosyn) 500 Mg Tablet 500 MG PO BID, #30 TAB 0 Refills Prov: RYAN COATSR L DO 09/26/21 Cyclobenzaprine HCl (Cyclobenzaprine HCl) 10 Mg Tablet 10 MG PO Q8H PRN for SPASMS, #15 TAB 0 Refills Prov: COATS,MARTIN L DO 09/26/21 BERKLEY COATSVOR L DO Sep 26, 2021 13:01
[2021-09-26 13:02] VITALS: BP 147/87
== END 2021-09-26 13:06 | disposition home or self-care (01) ==
LOC: EDUNIT# 12:36 → ER FS 12:37
DX: M54.16 Radiculopathy, lumbar region (principal); M54.42 Lumbago with sciatica, left side; I10 Essential (primary) hypertension; F17.210 Nicotine dependence, cigarettes, uncomplicated
CPT/HCPCS: 99284